=== PATIENT | female | born 1980 | race Caucasian/White ===

== ENCOUNTER 2018-02-16 15:55 | Emergency (ER) | payer MEDICAID ==
[~2018-02-16] VITALS: Ht 165.1 cm; Wt 104.5 kg
[~2018-02-16 15:55] MED LIST: MACROBID 1100 MG/CAP PO; PRENATAL1 TA7 PO; REGLAN 10MG10 MG/TAB PO
[2018-02-16 15:59] VITALS: BP 116/64; TEMP 98.8
[2018-02-16 16:25] LABS: COLLECTION METHOD CLEAN CATCH
[2018-02-16 16:33] LABS: MUCOUS Present /lpf; PH 5 (5-8); URINE APPEARANCE Hazy; URINE BACTERIA Rare /hpf; URINE BILIRUBIN Negative (NEGATIVE); URINE BLOOD Negative (NEGATIVE); URINE COLOR Yellow; URINE GLUCOSE Negative (NEGATIVE); URINE KETONE Negative (NEGATIVE); URINE LEUKOCYTE ESTERASE Negative (NEGATIVE); URINE NITRATE Negative (NEGATIVE); URINE PROTEIN(semi-quant) Negative (NEGATIVE); URINE RBC 0-2 /hpf; URINE UROBILINOGEN Negative (NEGATIVE)
[2018-02-16] MEDS ORDERED: IBU800 M1 PO (16:42)
[2018-02-16] MEDS ORDERED: LIDODERM 5% PATC1 EA TP (16:47)
[2018-02-16] MEDS ORDERED: FLEXERIL 1010 MG/TAB PO (16:47)
[2018-02-16 17:18] VITALS: PULSE 78
== END 2018-02-16 17:19 | disposition home or self-care (01) ==
LOC: COL.ER 15:55
PROVIDERS: Physician Assistant
DX: M54.32 Sciatica, left side (principal); F17.210 Nicotine dependence, cigarettes, uncomplicated; Z98.890 Other specified postprocedural states